=== PATIENT | male | born 1980 | race Caucasian/White ===

== ENCOUNTER 2019-07-08 08:37 | Emergency (ER) | payer MEDICAID ==
[~2019-07-08] VITALS: Ht 167.6 cm; Wt 80.7 kg
[2019-07-08 08:43] VITALS: Ht 167.6 cm; Wt 80.7 kg
[2019-07-08 10:14] VITALS: BP 113/53
== END 2019-07-08 10:14 | disposition home or self-care (01) ==
LOC: ED 08:37
DX: J10.1 Influenza due to other identified influenza virus with other respiratory manifestations (principal); Z98.890 Other specified postprocedural states
CPT/HCPCS: 87804; J1885